=== PATIENT | male | born 1985 | race Caucasian/White ===

== ENCOUNTER 2023-12-15 10:04 | Outpatient (CLI) | payer OTHER, SELFPAY ==
--- NOTE | 2023-12-15 10:22 | W.ANESCHARGE ---
Anesthesia Charges Start Date/Time Anesthesia Start Date: 12/15/23 Anesthesia Start Time: 10:33 Stop Date/Time Anesthesia Stop Date: 12/15/23 Anesthesia Stop Time: 11:03
--- NOTE | 2023-12-15 10:42 | W.ANESCHARGE ---
Anesthesia Charges Start Date/Time Anesthesia Start Date: 12/15/23 Anesthesia Start Time: 10:33 Stop Date/Time Anesthesia Stop Date: 12/15/23 Anesthesia Stop Time: 11:03
== END 2023-12-15 10:05 | disposition home or self-care (01) ==
LOC: OP CLINIC 10:05
PROVIDERS: PCP Family Medicine; Visit Provider Internal Medicine
DX: R19.4 Change in bowel habit (principal)
CPT/HCPCS: 00811; 00812; 45378; J2405; J2704